=== PATIENT | male | born 1930 | race Caucasian/White ===

== ENCOUNTER 2018-11-06 15:12 | Emergency (ER) | payer OTHER ==
[~2018-11-06] VITALS: Ht 162.6 cm; Wt 69.8 kg
[~2018-11-06 15:12] MED LIST: FLUZONE 2045 MCG/011; PNEUMOVAX25 MCG/0.5
[2018-11-06 15:55] LABS: HEMATOCRIT 40.1 % (42.0-52.0); HEMOGLOBIN 13.6 gm/dL (14.0-18.0); MCH 32.8 pg (26.0-34.0); MCHC 33.9 g/dL (28.0-37.0); MCV 96.7 fL (80.0-100.0); PLATELET COUNT 166 thou/uL (150-400); RBC 4.15 mil/uL (4.50-6.00); RDW 13.8 % (10.5-14.5); WBC 5.4 thou/uL (4.0-11.0)
[2018-11-06 16:03] LABS: ANION GAP 9 mmol/L (7-16); BUN 22 mg/dL (7-18); CALCIUM 9.9 mg/dL (8.5-10.1); CHLORIDE 100 mmol/L (98-107); CO2 31 mmol/L (21-32); GLUCOSE 115 mg/dL (74-106); POTASSIUM 3.9 mmol/L (3.5-5.1); SODIUM 140 mmol/L (136-145)
[2018-11-06 16:11] LABS: ABSOLUTE NEUTROPHILS 4.1 thou/uL (1.4-8.2); PLATELET ESTIMATE NORMAL
[2018-11-06 16:13] LABS: ALBUMIN 4.2 g/dL (3.4-5.0); SGOT 26 U/L (15-37); SGPT 22 U/L (30-65); TOTAL BILIRUBIN 0.5 mg/dL (<0.1-1.0); TOTAL PROTEIN 8.1 g/dL (6.4-8.2); TROPONIN-I <0.06 ng/mL (<0.06)
[2018-11-06 16:30] LABS: URINE BILIRUBIN NEGATIVE (Negative); URINE BLOOD 1+ (Negative); URINE CLARITY CLEAR; URINE COLOR YELLOW; URINE GLUCOSE-RANDOM* NEGATIVE (Negative); URINE KETONES NEGATIVE (Negative); URINE LEUKOCYTES-REFLEX TRACE (Negative); URINE NITRITE-REFLEX NEGATIVE (Negative); URINE PROTEIN (DIPSTICK) NEGATIVE (Negative); URINE SPECIFIC GRAVITY 1.025 (1.005-1.035); URINE UROBILINOGEN 0.2 E.U./dl (0.2-1.0)
[2018-11-06 16:42] LABS: CASTS None Seen /LPF (None Seen); CRYSTALS None Seen /LPF (None Seen); SQUAMOUS None Seen /LPF (0-3); URINE WBC-REFLEX 6-15 Few /HPF (0-5)
[2018-11-06 16:43] LABS: BACTERIA-REFLEX 1-9 Few /HPF (None Seen); URINE RBC 0-2 Rare /HPF (0-2)
--- NOTE | 2018-11-06 16:51 | EKG ---
[facility] [place] [address] ELECTROCARDIOGRAM REPORT Name: PATRICIA POPE [facility] [id number] ������������������ Admission: 11/06/18 ������������������ Attend Phys: Discharge: ������������������ Date of : [birth year] Report #: [id number] ����������������������������������������������������������������� [id number] THIS REPORT FOR: //name// [facility] ED Test Date: 2018-11-06 Test Time: 15:53:51 Pat Name: PATRICIA POPE Department: Room: Gender: Merchandiser Seasonal: : 1930 Requested By: Tiffany Segundo Order Number: [id number] MD: Bal Nunn Measurements Intervals [place] Rate: 70 P: ME: QRS: 264 QRSD: 145 T: 85 QT: 462 QTc: 499 Interpretive Statements Afib/flut and V-paced complexes No further analysis attempted due to paced rhythm No previous ECG available for comparison Electronically Signed On 11-06-2018 16:51:12 CDT by Bal Nunn [email or web address] ��������������������������������������������� <ELECTRONICALLY SIGNED> ���������������������������������������� By: Bal Nunn MD, [facility] ��������������������������������������������� 11/06/18 1651 1553 1553 Bal Nunn MD, FACC /EPI
[2018-11-06] MEDS ORDERED: KEFLEX500 M1 PO (17:38)
[2018-11-06 17:45] VITALS: BP 132/73
== END 2018-11-06 17:46 | disposition home or self-care (01) ==
LOC: ER 15:12
PROVIDERS: Physician Assistant
DX: N39.0 Urinary tract infection, site not specified (principal); N18.9 Chronic kidney disease, unspecified; R53.1 Weakness; Z90.49 Acquired absence of other specified parts of digestive tract; Z95.0 Presence of cardiac pacemaker; Z86.73 Personal history of transient ischemic attack (TIA), and cerebral infarction without residual deficits

== ENCOUNTER 2019-01-14 08:09 | Emergency (ER) | payer OTHER ==
[~2019-01-14] VITALS: Ht 162.6 cm; Wt 72.6 kg
[~2019-01-14 08:09] MED LIST changes: +KEFLEX500 M1 PO
[2019-01-14 09:18] LABS: ABSOLUTE NEUTROPHILS 3.6 thou/uL (1.4-8.2); BASOPHILS 0.7 % (0.0-2.0); EOSINOPHILS 2.9 % (0.0-3.0); HEMATOCRIT 41.9 % (42.0-52.0); HEMOGLOBIN 14.1 gm/dL (14.0-18.0); LYMPHOCYTES 15.8 % (24.0-44.0); MCH 32.7 pg (26.0-34.0); MCHC 33.6 g/dL (28.0-37.0); MCV 97.3 fL (80.0-100.0); PLATELET COUNT 171 thou/uL (150-400); POLYS 70.6 % (36.0-66.0); RBC 4.31 mil/uL (4.50-6.00); RDW 13.6 % (10.5-14.5)
[2019-01-14 09:22] LABS: CALCIUM 9.2 mg/dL (8.5-10.1); CREATININE 1.8 mg/dL (0.7-1.3)
[2019-01-14 09:28] LABS: ALBUMIN 4.1 g/dL (3.4-5.0); DIRECT BILIRUBIN 0.2 mg/dL (<0.1-0.3); TOTAL BILIRUBIN 0.6 mg/dL (<0.1-1.0)
[2019-01-14 09:41] LABS: URINE BILIRUBIN NEGATIVE (Negative); URINE BLOOD TRACE (Negative); URINE CLARITY CLEAR; URINE COLOR YELLOW; URINE GLUCOSE-RANDOM* NEGATIVE (Negative); URINE KETONES NEGATIVE (Negative); URINE LEUKOCYTES-REFLEX NEGATIVE (Negative); URINE NITRITE-REFLEX NEGATIVE (Negative); URINE PROTEIN (DIPSTICK) NEGATIVE (Negative); URINE UROBILINOGEN 0.2 E.U./dl (0.2-1.0)
[2019-01-14 13:48] VITALS: BP 148/88
--- NOTE | 2019-01-14 14:00 | EKG ---
[facility] [place] [address] ELECTROCARDIOGRAM REPORT Name: PATRICIA POPE [id number] ������������������ Admission: 01/14/19 ������������������ Attend Phys: Discharge: ������������������ Date of : [birth year] Report #: [id number] ����������������������������������������������������������������� [id number] THIS REPORT FOR: //name// [facility] ED Test Date: 2019-01-14 Test Time: 09:25:35 Pat Name: PATRICIA POPE Department: Room: Gender: Sales Support Representative: tjmtmatthew : 1930 Requested By: Sade Álvarez Order Number: [id number] MD: Bal Nunn Measurements Intervals [place] Rate: 71 P: 0 GA: 168 QRS: 78 QRSD: 106 T: -85 QT: 392 QTc: 426 Interpretive Statements Ventricular-paced complexes Occasional intrinsic depolarizations No further rhythm analysis attempted due to paced rhythm Compared to ECG 11/06/2018 15:53:51 No significant change was found Electronically Signed On 01-14-2019 14:00:28 CDT by Bal Nunn [email or web address] ��������������������������������������������� <ELECTRONICALLY SIGNED> ���������������������������������������� By: Bal Nunn MD, [facility] ��������������������������������������������� 01/14/19 1400 4 4 Bal Nunn MD, [facility] /EPI
== END 2019-01-14 13:50 | disposition home or self-care (01) ==
LOC: ER 08:09
PROVIDERS: Emergency Medicine
DX: I95.1 Orthostatic hypotension (principal); Z88.0 Allergy status to penicillin; Z90.49 Acquired absence of other specified parts of digestive tract

== ENCOUNTER 2019-03-08 20:33 | Emergency (ER) | payer OTHER ==
[~2019-03-08] VITALS: Ht 157.5 cm; Wt 76.2 kg
[2019-03-08 21:41] VITALS: BP 153/77
== END 2019-03-08 21:41 | disposition home or self-care (01) ==
LOC: ER 20:33
DX: Z48.01 Encounter for change or removal of surgical wound dressing (principal); I10 Essential (primary) hypertension; I48.91 Unspecified atrial fibrillation; Z95.0 Presence of cardiac pacemaker; Z90.49 Acquired absence of other specified parts of digestive tract; Z88.0 Allergy status to penicillin

== ENCOUNTER 2020-01-18 07:55 | Emergency (ER) | payer OTHER ==
[~2020-01-18] VITALS: Ht 157.5 cm; Wt 72.6 kg
[2020-01-18 09:09] LABS: ABSOLUTE NEUTROPHILS 3.3 thou/uL (1.4-8.2); BASOPHILS 0.8 % (0.0-2.0); EOSINOPHILS 3.7 % (0.0-3.0); HEMATOCRIT 38.6 % (42.0-52.0); HEMOGLOBIN 13.1 gm/dL (14.0-18.0); LYMPHOCYTES 12.9 % (24.0-44.0); MCH 32.9 pg (26.0-34.0); MCHC 33.9 g/dL (28.0-37.0); PLATELET COUNT 150 thou/uL (150-400); POLYS 71.6 % (36.0-66.0); RBC 3.97 mil/uL (4.50-6.00); RDW 14.4 % (10.5-14.5); WBC 4.6 thou/uL (4.0-11.0)
[2020-01-18 09:18] LABS: ANION GAP 4 mmol/L (7-16); BUN 18 mg/dL (7-18); CALCIUM 8.9 mg/dL (8.5-10.1); CHLORIDE 99 mmol/L (98-107); CO2 33 mmol/L (21-32); CREATININE 1.6 mg/dL (0.7-1.3); GLUCOSE 101 mg/dL (74-106); POTASSIUM 3.6 mmol/L (3.5-5.1); SODIUM 136 mmol/L (136-145)
[2020-01-18 09:29] LABS: ALBUMIN 3.7 g/dL (3.4-5.0); SGOT 27 U/L (15-37); SGPT 29 U/L (30-65); TOTAL BILIRUBIN 0.5 mg/dL (0.2-1.0); TOTAL PROTEIN 7.2 g/dL (6.4-8.2); TROPONIN-I <0.06 ng/mL (<0.06)
[2020-01-18] MEDS ORDERED: FUROSEMIDE 20 M20 M1 PO (10:05)
[2020-01-18] MEDS ORDERED: LOPRESSOR50 PO (10:39)
[2020-01-18] MEDS ORDERED: WARFARIN SODIU2.5 MG PO (10:40)
[2020-01-18] MEDS ORDERED: SIMVASTATIN40 MG PO (10:40)
[2020-01-18] MEDS ORDERED: DILTIAZEM 24HR120 M1 PO (10:43)
[2020-01-18] MEDS ORDERED: LEVETIRACETAM750 MG PO (10:43)
[2020-01-18] MEDS ORDERED: LEVOTHYROXINE50 MCG PO (10:43)
[2020-01-18] MEDS ORDERED: TERAZOSIN HCL5 MG PO (10:44)
[2020-01-18] MEDS ORDERED: TAMSULOSIN HCL0.4 MG PO (10:44)
[2020-01-18] MEDS ORDERED: DIGITEK125 MC2 PO (10:45)
[2020-01-18 11:05] LABS: URINE BILIRUBIN NEGATIVE (Negative); URINE BLOOD TRACE (Negative); URINE CLARITY CLEAR; URINE COLOR YELLOW; URINE GLUCOSE-RANDOM* NEGATIVE (Negative); URINE KETONES NEGATIVE (Negative); URINE LEUKOCYTES-REFLEX NEGATIVE (Negative); URINE NITRITE-REFLEX NEGATIVE (Negative); URINE PROTEIN (DIPSTICK) NEGATIVE (Negative); URINE SPECIFIC GRAVITY 1.015 (1.005-1.035)
[2020-01-18] MEDS ORDERED: ATIVAN1 M1 PO (11:27)
[2020-01-18] MEDS ORDERED: MECLIZINE HCL25 M1 PO (11:27)
[2020-01-18 11:54] VITALS: BP 143/69
--- NOTE | 2020-01-18 15:54 | EKG ---
[facility] [place] [address] ELECTROCARDIOGRAM REPORT Name: PATRICIA POPE [facility] [id number] Admission: 01/18/20 Attend Phys: Discharge: 01/18/20 Date of : [birth year] Report #: [id number] THIS REPORT FOR: cc: Renetta Mcgee RN, Anne H. RN Lundgren, Craig H. MD [facility] ~ THIS REPORT FOR: //name// [facility] ED Test Date: 2020-01-18 Test Time: 09:06:48 Pat Name: PATRICIA POPE Department: Room: Gender: [place] Layer: [facility] : 1930 Requested By: Dharmesh Sorto Order Number: [id number] MD: Bal Nunn Measurements Intervals [place] Rate: 60 P: [place]: 189 QRS: 66 QRSD: 112 T: -52 QT: 422 QTc: 422 Interpretive Statements Sinus rhythm with atrial pacing Incomplete right bundle branch block Compared to ECG 01/14/2019 09:25:35 Ventricular pacing is no longer present Electronically Signed On 01-18-2020 15:53:51 CDT by Bal Nunn [email or web address] <ELECTRONICALLY SIGNED> By: Bal Nunn MD, [facility] 01/18/20 1553 0906 0906 Bal Nunn MD, [facility] /EPI
== END 2020-01-18 11:56 | disposition home or self-care (01) ==
LOC: ER 07:55
PROVIDERS: Emergency Medicine
DX: H81.10 Benign paroxysmal vertigo, unspecified ear (principal); I12.9 Hypertensive chronic kidney disease with stage 1 through stage 4 chronic kidney disease, or unspecified chronic kidney disease; N18.9 Chronic kidney disease, unspecified; R42 Dizziness and giddiness; I48.91 Unspecified atrial fibrillation; Z90.49 Acquired absence of other specified parts of digestive tract; Z88.0 Allergy status to penicillin; Z86.73 Personal history of transient ischemic attack (TIA), and cerebral infarction without residual deficits

== ENCOUNTER 2020-08-15 09:19 | Inpatient (IN) | payer OTHER ==
[~2020-08-15] VITALS: Ht 160 cm; Wt 65.0 kg
[~2020-08-15 09:19] MED LIST changes: +ATIVAN1 M1 PO; +DIGITEK125 MC2 PO; +DILTIAZEM 24HR120 M1 PO; +FUROSEMIDE 20 M20 M1 PO; +LEVETIRACETAM750 MG PO; +LEVOTHYROXINE50 MCG PO; +LOPRESSOR50 PO; +MECLIZINE HCL25 M1 PO; +SIMVASTATIN40 MG PO; +TAMSULOSIN HCL0.4 MG PO; +TERAZOSIN HCL5 MG PO; +WARFARIN SODIU2.5 MG PO
[2020-08-15 09:30] VITALS: BP 161/69
[2020-08-15 10:09] LABS: URINE BILIRUBIN NEGATIVE (Negative); URINE BLOOD 1+ (Negative); URINE CLARITY CLEAR; URINE COLOR YELLOW; URINE GLUCOSE-RANDOM* NEGATIVE (Negative); URINE KETONES NEGATIVE (Negative); URINE LEUKOCYTES-REFLEX NEGATIVE (Negative); URINE NITRITE-REFLEX NEGATIVE (Negative); URINE PROTEIN (DIPSTICK) TRACE (Negative); URINE SPECIFIC GRAVITY 1.025 (1.005-1.035)
[2020-08-15 10:10] LABS: ANION GAP 6 mmol/L (7-16); BUN 27 mg/dL (7-18); CALCIUM 9.1 mg/dL (8.5-10.1); CHLORIDE 105 mmol/L (98-107); CO2 33 mmol/L (21-32); CREATININE 1.7 mg/dL (0.7-1.3); GLUCOSE 109 mg/dL (74-106); POTASSIUM 3.7 mmol/L (3.5-5.1); SODIUM 144 mmol/L (136-145)
[2020-08-15 10:12] LABS: BASOPHILS 0.3 % (0.0-2.0); EOSINOPHILS 7.5 % (0.0-3.0); HEMOGLOBIN 12.5 gm/dL (14.0-18.0); LYMPHOCYTES 10.8 % (24.0-44.0); MCH 32.6 pg (26.0-34.0); MCHC 32.9 g/dL (28.0-37.0); MCV 98.8 fL (80.0-100.0); MONOCYTES 14.5 % (1.0-8.0); PLATELET COUNT 141 thou/uL (150-400); POLYS 66.9 % (36.0-66.0); RBC 3.84 mil/uL (4.50-6.00); RDW 13.4 % (10.5-14.5)
[2020-08-15 10:17] LABS: APTT 33.6 Seconds (24.5-32.8); INR 1.7; PROTIME 17.2 Seconds (9.3-11.4)
[2020-08-15 10:21] LABS: ALBUMIN 3.6 g/dL (3.4-5.0); LIPASE 91 U/L (73-393); SGOT 31 U/L (15-37); SGPT 31 U/L (16-63); TOTAL BILIRUBIN 0.6 mg/dL (0.2-1.0); TOTAL PROTEIN 7.6 g/dL (6.4-8.2); TROPONIN-I <0.06 ng/mL (<0.06)
[2020-08-15 10:43] LABS: CASTS None Seen /LPF (None Seen); MUCUS 4-6 Moderate strn/LPF (None Seen); SQUAMOUS 0-3 Few /LPF (0-3)
[2020-08-15 10:45] LABS: BACTERIA-REFLEX None Seen /HPF (None Seen); CRYSTALS None Seen /LPF (None Seen); URINE RBC 3-10 Few /HPF (0-2); URINE WBC-REFLEX 0-5 Rare /HPF (0-5)
[2020-08-15 13:25] VITALS: BP 161/69
[2020-08-15 14:13] VITALS: BP 142/65
--- NOTE | 2020-08-15 15:31 | EKG ---
[address] [address] ELECTROCARDIOGRAM REPORT Name: PATRICIA POPE Room #: 204-P ADM IN M.R.#: [id number] Admission: 08/15/20 Attend Phys: Yraed Briseno MD Discharge: Date of : [birth year] Report #: [id number] [facility] ED Test Date: 2020-08-15 Test Time: 10:21:03 Pat Name: PATRICIA POPE Department: Room: [facility] Gender: M Working Foreman: RAINE : 1930 Requested By: Luan Suazo Order Number: [id number] MD: Fernando Carlson Measurements Intervals [place] Rate: 60 P: [place]: 186 QRS: 85 QRSD: 110 T: -29 QT: 424 QTc: 424 Interpretive Statements Atrial-paced complexes Consider RVH w/ secondary repol abnormality Compared to ECG 01/18/2020 09:06:48 No significant change Electronically Signed On 08-15-2020 15:31:38 [employer] SYSTEM ADMINISTRATOR by Fernando Carlson [email or web address] <ELECTRONICALLY SIGNED> By: Fernando Carlson MD, [facility] 08/15/20 1531 102 102 Fernando Carlson MD, FAC /EPI
[2020-08-15 19:20] VITALS: BP 143/75
[2020-08-15 23:45] VITALS: BP 145/75
[2020-08-16 04:08] LABS: PROTIME 20.1 Seconds (9.3-11.4)
[2020-08-16 04:17] VITALS: BP 137/75
[2020-08-16 04:21] LABS: ABSOLUTE NEUTROPHILS 5.6 thou/uL (1.4-8.2); BASOPHILS 0.3 % (0.0-2.0); EOSINOPHILS 4.9 % (0.0-3.0); HEMATOCRIT 36.5 % (42.0-52.0); HEMOGLOBIN 12.1 gm/dL (14.0-18.0); LYMPHOCYTES 7.4 % (24.0-44.0); MCH 32.9 pg (26.0-34.0); MCHC 33.3 g/dL (28.0-37.0); MONOCYTES 12.3 % (1.0-8.0); PLATELET COUNT 137 thou/uL (150-400); POLYS 75.1 % (36.0-66.0); RBC 3.69 mil/uL (4.50-6.00); RDW 13.8 % (10.5-14.5); WBC 7.5 thou/uL (4.0-11.0)
[2020-08-16 04:38] LABS: ANION GAP 10 mmol/L (7-16); BUN 22 mg/dL (7-18); CALCIUM 9.1 mg/dL (8.5-10.1); CHLORIDE 104 mmol/L (98-107); CHOLESTEROL 164 mg/dL (<200); CO2 27 mmol/L (21-32); CREATININE 1.5 mg/dL (0.7-1.3); GLUCOSE 115 mg/dL (74-106); HDL CHOLESTEROL 38 mg/dL (>40); LDL CHOLESTEROL 106 mg/dL (<100); POTASSIUM 3.6 mmol/L (3.5-5.1); SODIUM 141 mmol/L (136-145); TC:HDL 4.3 Ratio (Not establshd); TRIGLYCERIDE 104 mg/dL (<150); VLDL 21 mg/dL (<40)
[2020-08-16 04:40] LABS: SERUM ASSESSMENT Clear
[2020-08-16 07:54] VITALS: BP 127/66
--- NOTE | 2020-08-16 09:21 | HC ---
[facility] [place] [address] CONSULTATION Name: PATRICIA POPE Room #: 204-P ADM IN M.R.#: [id number] Admission: 08/15/20 Attend Phys: Yared Briseno MD Discharge: Date of : [birth year] Report #: [id number] THIS REPORT FOR: cc: Renetta Mcgee RN, Anne H. RN [place], Roxane S. DO ~ DATE OF SERVICE: 08/15/2020 NEUROLOGY CONSULTATION HISTORY OF PRESENT ILLNESS: The gentleman is an 89-year-old male who is in an independent living. However, the patient called for his nurses today. He thought perhaps his blood pressure was high. When they came, they felt that he was confused. He had fallen 2 or 3 days previously. His daughter was concerned because her mother from a subdural hematoma. She states that her father has no difficulty with his memory. However, she is concerned after these events that perhaps he will require a higher level of care. She knows that he does quite a bit of sitting and wonders if there is a component of deconditioning. She states that he does have weakness in his legs. 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 After the stroke, the patient had several seizures and is on levetiracetam 750 mg twice a day. 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 PAST SURGICAL HISTORY: Mitral valve repair, pacemaker placement, appendectomy. MEDICATIONS: Furosemide 20 mg daily, metoprolol 50 mg b.i.d., warfarin, simvastatin 40 mg daily, diltiazem daily, levetiracetam 750 mg b.i.d., levothyroxine daily, terazosin daily, tamsulosin daily, digoxin 125 mcg daily. ALLERGIES: PENICILLIN. VITAL SIGNS: Temperature is 36.7, pulse rate 60, respiratory rate 18, blood pressure 161/69, bedside pulse oximetry 93%. LABORATORY DATA: Hematology: White blood cell count 6, hemoglobin 12.5, hematocrit 38, MCV 98.8, platelet count 141,000. INR 1.7. Urinalysis, trace protein, 1+ blood. Chemistry: Sodium 144, potassium 3.7, chloride 105, carbon dioxide 33, BUN 27, creatinine 1.7, GFR 68, glucose 109. Lactic acid 0.9, calcium 9.1. Liver functions normal. CPK 263. BNP 1624. B12 pending. IMAGING: CT scan of the head demonstrates cerebral atrophy and small vessel ischemic change with chronic infarct left external capsule. CT of the abdomen [address] [address] CONSULTATION Name: NIKOPATRICIA ARRIBA Room #: 204-P [facility] IN M.R.#: [id number] Admission: 08/15/20 Attend Phys: Yared Briseno MD Discharge: Date of : [birth year] Report #: [id number] and pelvis without contrast demonstrates diverticulosis and probable bilateral renal cortical cysts. Chest x-ray shows a left chest wall battery pack. NEUROLOGIC EXAM: The patient is very hard of hearing. His daughter had to ask questions. The patient knew that it was 08/2020, but it was difficult for him to understand what was being said and he was not able to say the date or day of the week. Cranial nerves 2-12 are grossly intact. Motor exam demonstrates the patient able to lift his arms and legs from the bed. Reflexes demonstrate a slight right reflex preponderance. Plantar responses are flexor bilaterally. Coordination demonstrates no evidence of dysmetria. The patient is lying in a hospital bed and gait was not tested. He is only wearing a diaper. IMPRESSION: The patient's daughter states that her father has returned to his baseline. I would like to do more cognitive testing and will ask speech therapy to evaluate the patient. We discussed the generalized weakness. Daughter understands that this may be from deconditioning. I explained to her he could have spinal stenosis either in the cervical or lumbar spine. The patient has a pacemaker making, an MRI somewhat difficult to do. However, she asked me what the end result would be if an MRI were to be done and I explained this would be to evaluate for spinal stenosis, the treatment if it is present, is surgery. She said that her father may not be interested in that type of treatment and she will give some thought as to whether she wants any further imaging studies done. The patient does have a history of stroke with seizures. I have put him back on levetiracetam 750 mg twice a day. I will also order a TSH; a B12 level and vitamin D level are both pending. I thank you for your kind referral of the patient and we will reevaluate the patient on Tuesday. <ELECTRONICALLY SIGNED> By: Camille Drummond DO 08/16/20 0921 1255 1825 Camille Drummond DO /nt
[2020-08-16 11:33] VITALS: BP 122/58
[2020-08-16 15:23] VITALS: BP 137/60
[2020-08-16 19:56] VITALS: BP 137/70
[2020-08-17 04:03] VITALS: BP 102/59
[2020-08-17 07:30] VITALS: BP 116/67
[2020-08-17 08:33] LABS: INR 2.3; PROTIME 23.7 Seconds (9.3-11.4)
[2020-08-17 11:08] VITALS: BP 127/77
[2020-08-17 15:25] VITALS: BP 108/70
[2020-08-17 20:18] VITALS: BP 122/70
[2020-08-18 03:42] LABS: INR 2.5; PROTIME 25.7 Seconds (9.3-11.4)
[2020-08-18 04:09] VITALS: BP 116/58
[2020-08-18 08:57] VITALS: BP 117/51
[2020-08-18 11:30] VITALS: BP 125/66
[2020-08-18 15:54] VITALS: BP 135/77
[2020-08-18 15:57] VITALS: BP 125/66
[2020-08-18 18:56] VITALS: BP 146/90
[2020-08-19 05:22] LABS: PROTIME 30.9 Seconds (9.3-11.4)
[2020-08-19 08:00] VITALS: BP 130/86
[2020-08-19] MEDS ORDERED: TRAZODONE HCL50 MG PO (10:59)
[2020-08-19 11:45] VITALS: BP 125/66
[2020-08-19 17:15] VITALS: BP 119/67
[2020-08-19 19:53] VITALS: BP 121/70
[2020-08-20 04:29] VITALS: BP 126/56
[2020-08-20 04:42] LABS: INR 3.3; PROTIME 33.6 Seconds (9.3-11.4)
[2020-08-20 07:45] VITALS: BP 141/70
[2020-08-20 10:13] LABS: HEMATOCRIT 32.2 % (42.0-52.0); HEMOGLOBIN 10.6 gm/dL (14.0-18.0); MCHC 32.9 g/dL (28.0-37.0); MCV 100.2 fL (80.0-100.0); RBC 3.21 mil/uL (4.50-6.00); WBC 5.8 thou/uL (4.0-11.0)
[2020-08-20 10:19] LABS: CALCIUM 8.7 mg/dL (8.5-10.1); CREATININE 1.5 mg/dL (0.7-1.3); MAGNESIUM 1.7 mg/dL (1.8-2.4); POTASSIUM 3.5 mmol/L (3.5-5.1)
[2020-08-20 17:15] VITALS: BP 108/68
[2020-08-20 19:41] VITALS: BP 112/72
[2020-08-20 21:07] VITALS: BP 112/72
[2020-08-21 04:05] VITALS: BP 113/71
[2020-08-21 08:02] VITALS: BP 115/67
[2020-08-21 10:04] LABS: INR 3.1; PROTIME 31.1 Seconds (9.3-11.4)
[2020-08-21 11:18] VITALS: BP 109/59
[2020-08-21] MEDS ORDERED: METOPROLOL TART75 MG PO (13:45)
== END 2020-08-21 15:48 | DRG 682 ==
LOC: ER 09:19 → 2N 11:54 → EROBS 11:54 → 2N 14:51
PROVIDERS: Emergency Medicine; Internal Medicine; Nurse Practitioner; ADMIT Hospitalist; ATTEND Hospitalist
DX: N17.9 Acute kidney failure, unspecified (principal); G93.41 Metabolic encephalopathy; I48.21 Permanent atrial fibrillation; I69.351 Hemiplegia and hemiparesis following cerebral infarction affecting right dominant side; G40.409 Other generalized epilepsy and epileptic syndromes, not intractable, without status epilepticus; E86.0 Dehydration; F03.90 Unspecified dementia, unspecified severity, without behavioral disturbance, psychotic disturbance, mood disturbance, and anxiety; R40.2410 Glasgow coma scale score 13-15, unspecified time; N18.9 Chronic kidney disease, unspecified; Z66 Do not resuscitate; E03.9 Hypothyroidism, unspecified; E78.5 Hyperlipidemia, unspecified; N40.0 Benign prostatic hyperplasia without lower urinary tract symptoms; R00.0 Tachycardia, unspecified; Z20.822 Contact with and (suspected) exposure to COVID-19; I12.9 Hypertensive chronic kidney disease with stage 1 through stage 4 chronic kidney disease, or unspecified chronic kidney disease; R53.81 Other malaise; Z95.0 Presence of cardiac pacemaker; Z90.49 Acquired absence of other specified parts of digestive tract; Z88.0 Allergy status to penicillin; Z98.49 Cataract extraction status, unspecified eye; Z95.2 Presence of prosthetic heart valve; Z79.01 Long term (current) use of anticoagulants
CPT/HCPCS: 10081